=== PATIENT | female | born 1980 | race African-American/Black ===

== ENCOUNTER 2017-05-14 15:49 | Emergency (ER) | payer OTHER ==
[~2017-05-14] VITALS: Ht 172.7 cm; Wt 63.8 kg
[~2017-05-14 15:49] MED LIST: LIDODERM 5% P1 PATCH TD; MEDROL DOSEPAK4 MG PO; NORCO 5/3251 TABLET PO
[2017-05-14] MEDS ORDERED: TESSALON PERLE100 MG PO (17:56)
[2017-05-14] MEDS ORDERED: INDOCIN25 MG PO (17:56)
[2017-05-14] MEDS ORDERED: LEVAQUIN500 MG PO (17:56)
[2017-05-14 18:21] VITALS: BP 144/84
== END 2017-05-14 18:25 | disposition home or self-care (01) ==
LOC: EME 15:49
DX: J18.0 Bronchopneumonia, unspecified organism (principal); S29.011A Strain of muscle and tendon of front wall of thorax, initial encounter; X58.XXXA Exposure to other specified factors, initial encounter; F17.200 Nicotine dependence, unspecified, uncomplicated; Z76.0 Encounter for issue of repeat prescription
CPT/HCPCS: 71020; 93005; 99281; 99285

== ENCOUNTER 2017-05-21 09:02 | Emergency (ER) | payer OTHER ==
[~2017-05-21] VITALS: Ht 172.7 cm; Wt 65.3 kg
[~2017-05-21 09:02] MED LIST changes: +INDOCIN25 MG PO; +LEVAQUIN500 MG PO; +TESSALON PERLE100 MG PO
[2017-05-21 10:18] LABS: MCH 30.2 PG (29.0-34.0); MCHC 32.4 G/DL (30.0-36.0); MCV 93.2 FL (83-99); MEAN PLAT.VOLUME 8.2 uM^3 (9.5-12.4); PLATELET COUNT 350 K/uL (156-360); RBC DIS.WIDTH-CV 13.1 % (11.8-14.6); RBC DIS.WIDTH-SD 44.9 % (39-53)
[2017-05-21 10:26] LABS: CHLORIDE 106 mEq/L (99-109); POTASSIUM 4.4 mEq/L (3.7-5.4); SODIUM 141 mEq/L (136-147)
[2017-05-21 10:28] LABS: GLUCOSE 98 mg/dL (70-99)
[2017-05-21 10:29] LABS: ANION GAP 9 MEQ/L (2-14)
[2017-05-21 10:31] LABS: GFR ESTIMATE (CALCULATED) > 59 mL/min/
[2017-05-21 10:32] LABS: UREA NITROGEN (BUN) 15 mg/dL (9-23)
[2017-05-21] MEDS ORDERED: NORCO 5/3251 TABLET PO (13:13)
[2017-05-21] MEDS ORDERED: NAPROSYN500 MG PO (13:13)
[2017-05-21 13:30] VITALS: BP 129/88
== END 2017-05-21 13:39 | disposition home or self-care (01) ==
LOC: EME 09:02
PROVIDERS: Nurse Practitioner Family
DX: S22.31XA Fracture of one rib, right side, initial encounter for closed fracture (principal); F17.200 Nicotine dependence, unspecified, uncomplicated
CPT/HCPCS: 71020; 71260; 80048; 85027; 85379; 93005; 99281; 99283

== ENCOUNTER 2017-06-05 07:55 | Emergency (ER) | payer OTHER ==
[~2017-06-05] VITALS: Ht 172.7 cm; Wt 63.1 kg
[~2017-06-05 07:55] MED LIST changes: +NAPROSYN500 MG PO
[2017-06-05 08:37] LABS: MCH 30.4 PG (29.0-34.0); MCV 92.1 FL (83-99); MEAN PLAT.VOLUME 8.6 uM^3 (9.5-12.4); PLATELET COUNT 334 K/uL (156-360); RBC DIS.WIDTH-CV 12.8 % (11.8-14.6); RBC DIS.WIDTH-SD 43.1 % (39-53); RED BLOOD COUNT 4.67 M/uL (3.80-5.20); WHITE BLOOD COUNT 7.2 K/uL (4.1-10.2)
[2017-06-05 08:54] LABS: CHLORIDE 107 mEq/L (99-109); POTASSIUM 4.1 mEq/L (3.7-5.4); SODIUM 139 mEq/L (136-147)
[2017-06-05 08:56] LABS: GLUCOSE 100 mg/dL (70-99)
[2017-06-05 08:57] LABS: ANION GAP 10 MEQ/L (2-14); TROP-I INTERPRETATION NEGATIVE; TROPONIN-I < 0.01 ng/mL (0.0-0.30)
[2017-06-05 09:00] LABS: UREA NITROGEN (BUN) 14 mg/dL (9-23)
[2017-06-05 09:35] LABS: GFR ESTIMATE (CALCULATED) > 59 mL/min/
[2017-06-05 10:57] LABS: TROP-I INTERPRETATION NEGATIVE; TROPONIN-I < 0.01 ng/mL (0.0-0.30)
[2017-06-05] MEDS ORDERED: PROVENTIL HFA6.7 GM IH (11:02)
[2017-06-05] MEDS ORDERED: PREDNISONE20 MG PO (11:02)
[2017-06-05 11:18] VITALS: BP 126/67
== END 2017-06-05 11:18 | disposition home or self-care (01) ==
LOC: EME 07:55
PROVIDERS: Emergency Medicine
DX: J20.9 Acute bronchitis, unspecified (principal); R07.9 Chest pain, unspecified; F17.200 Nicotine dependence, unspecified, uncomplicated
CPT/HCPCS: 71010; 80048; 83880; 84484; 85027; 93005; 94640; 99281; 99285; J1885